=== PATIENT | female | born 1995 | race Caucasian/White ===

== ENCOUNTER 2019-10-31 13:45 | Emergency (ER) | payer MEDICAID ==
[~2019-10-31] VITALS: Ht 162.6 cm; Wt 54.4 kg
--- NOTE | 2019-10-31 13:47 | NUR ---
LEIGH MAGAÑA ALS TO ER BED 05
--- NOTE | 2019-10-31 14:00 | NUR ---
[facility] ON 5150 HOLD BY ALLIE GAFFNEY WITH C/O WALKING INTO ONCOMING TRAFFIC. PT INITIALLY WAS ONLY NODDING YES/NO AND NOT SPEAKING. WHEN ASKED IF SHE CHOOSES NOT TO SPEAK SHE NODDED YES. AFTER TALKING WITH PT FOR A WHILE, SHE STARTED TO BECOME VERBAL. PT DENIES SI/HI, KNOWS HER NAME AND BIRTHDAY, & ACKNOWLEGES THAT SHE IS HOMELESS. PT DENIES DRUG/ETOH USE. PT NOT ANSWERING WHEN ASKED IF SHE HAS MEDICAL HISTORY OR IF SHE TAKES DAILY MEDICATION. PT DISPLAYS PARANOID LIKE BEHAVIOR. PT NOTED TO HAVE BRUISING BELOW L EYE, BRUISING ABOVE BILAT ELBOWS, BRUISING NOTED TO INSIDE OF R STEIN, AND SWELLING NOTED TO R HAND 2ND & 3RD DIGIT. PT DENIES INJURY AND DENIES ABUSE OR FEELING LIKE SHE IS IN DANGER. I REASSURED PT SHE IS IN A SAFE PLACE AND NO ONE HERE IS GOING TO HARM HER. PT CHANGED INTO GOWN AND ALL BELONGINGS REMOVED FROM THE ROOM. SUICIDE SAFTEY PRECAUTIONS INITIATED, ALL CORDS/PLASTIC BAGS/SAFTEY HAZARDS REMOVED FROM BEDSIDE. EMT KIM SITTING AT BEDSIDE.
--- NOTE | 2019-10-31 14:02 | NUR ---
DR. GRIMM EVALUATING PT AT BEDSIDE
[2019-10-31 14:11] VITALS: BP 135/72
--- NOTE | 2019-10-31 14:16 | NUR ---
URINE COLLECTED AND WALKED TO LAB
[2019-10-31 14:22] LABS: BASOPHILS % (AUTO) 0.6 % (0.0-2.0); EOSINOPHILS # (AUTO) 0.2 K/uL (0-0.4); HEMOGLOBIN 10.7 g/dL (12.0-16.0); LYMPHOCYTES # (AUTO) 2.9 K/uL (2.5-16.5); LYMPHOCYTES % (AUTO) 35.7 % (20.5-51.1); MEAN CORPUSCULAR HEMOGLOBIN 29 pg (27-31); MEAN CORPUSCULAR HGB CONC 33 g/dL (33-37); MEAN CORPUSCULAR VOLUME 85.6 fL (80-94); MONOCYTES # (AUTO) 0.6 K/uL (0.8-1.0); MONOCYTES % (AUTO) 7.9 % (1.7-9.3); NEUTROPHILS # (AUTO) 4.4 K/uL (1.8-7.7); NEUTROPHILS % (AUTO) 53.8 % (42.2-75.2); PLATELET COUNT (AUTO) 267 K/uL (140-450); RED BLOOD CELL COUNT(AUTO) 3.73 MIL/uL (4.20-5.40); RED CELL DISTRIBUTION WIDTH 17.4 % (11.6-13.7); WHITE BLOOD COUNT (AUTO) 8.2 K/uL (4.8-10.8)
--- NOTE | 2019-10-31 14:35 | NUR ---
PT SITTING UP EATING IN THE BED. EMT KIM SITTING AT BEDSIDE
[2019-10-31 14:37] LABS: ALBUMIN 3.4 g/dL (3.4-5.0); ASPARTATE AMINOTRANSFERASE 284 U/L (15-37); CARBON DIOXIDE 27.5 mmol/L (21-32); CHLORIDE 108 mmol/L (98-107); CREATININE 0.7 mg/dL (0.6-1.3); GFR ARICAN-AMERICAN 135 mL/min (>90); GLUCOSE 102 mg/dL (74-106); POTASSIUM 3.5 mmol/L (3.5-5.1); SODIUM SERUM 143 mmol/L (136-145); TOTAL BILIRUBIN 0.2 mg/dL (0.0-1.0); UREA NITROGEN, BLOOD 15 mg/dL (7-18)
[2019-10-31 14:38] LABS: SALICYLATE < 2.8 mg/dL (2.8-20.0)
[2019-10-31 14:41] LABS: BARBITURATE, URINE NEGATIVE ng/ml (NEG <=200); BENZODIAZEPINE, URINE NEGATIVE ng/mL (NEG <=200); CANNABINOID, URINE NEGATIVE ng/mL (NEG <=50); COCAINE, URINE NEGATIVE ng/mL (NEG <=300); OPIATE, URINE NEGATIVE ng/mL (NEG <=2000); PHENCYCLIDINE SCREEN,URINE NEGATIVE ng/mL (NEG <=25)
[2019-10-31 14:43] LABS: APPEARANCE,URINE HAZY (CLEAR); COLOR,URINE YELLOW (YELLOW); PH,URINE 5.5 (5.0-9.0)
[2019-10-31 14:44] LABS: BILIRUBIN,URINE NEGATIVE (NEGATIVE); BLOOD, URINE NEGATIVE (NEGATIVE); LEUKOCYTE ESTERASE ,URINE NEGATIVE (NEGATIVE); NITRITE, URINE POSITIVE (NEGATIVE); UGLUCOSE NEGATIVE (NEGATIVE)
[2019-10-31 14:46] LABS: RBC,URINE 0-5 /HPF (0-5)
[2019-10-31] MEDS ORDERED: CIPROFLOXACIN 250 MG TAB PO ONE (14:50)
--- NOTE | 2019-10-31 15:30 | NUR ---
pt talking to telepsych at bedside
--- NOTE | 2019-10-31 15:44 | NUR ---
pt standing at bedside. advised pt to please remain seated. pt cooperating at this time.
--- NOTE | 2019-10-31 16:00 | NUR ---
pt standing in room, advised her to please be seated. pt refusing to sit down. sitter at bedside, saftey precautions in place.
--- NOTE | 2019-10-31 16:20 | NUR ---
pt asked to use restroom, walked her to restroom and observed for saftey.
--- NOTE | 2019-10-31 16:27 | NUR ---
pt pulled assistance alarm cord off wall. informed charge nurse Radha. When asked pt why she did that, she said "i dont know". discarded cord.
--- NOTE | 2019-10-31 16:33 | NUR ---
pt remains standing/pacing at bedside. sitter at bedside
--- NOTE | 2019-10-31 16:55 | NUR ---
called security to bring pt belongings.
--- NOTE | 2019-10-31 17:01 | NUR ---
Patient discharged with v/s stable. Written and verbal after care instructions given and explained. Patient verbalized understanding. Ambulatory with steady gait. All questions addressed prior to discharge. Advised to follow up with PMD. provided pt with sack lunch. pt declined transportation offer and states she is going to go home to her boyfriends house. pt a&o x4 and denies SI/HI
[2019-10-31 17:02] VITALS: BP 130/68
== END 2019-10-31 17:01 | disposition home or self-care (01) ==
LOC: MED 13:45
DX: F19.94 Other psychoactive substance use, unspecified with psychoactive substance-induced mood disorder (principal); F15.10 Other stimulant abuse, uncomplicated; R45.851 Suicidal ideations; Z59.0 Homelessness
CPT/HCPCS: 36415; 80053; 80305; 81001; 85025; 99283; G0480; G0482